=== PATIENT | female | born 1975 | race Two or more races ===

== ENCOUNTER 2018-10-10 14:03 | Outpatient (CLI) | payer OTHER | END 2018-10-10 14:06 | disposition home or self-care (01) | LOC: MAMO-SONO 14:03 | DX: Z12.31 Encounter for screening mammogram for malignant neoplasm of breast (principal) ==

== ENCOUNTER 2022-08-26 07:03 | Day surgery (SDC) | payer OTHER ==
[~2022-08-26] VITALS: Ht 185.4 cm; Wt 84.4 kg
== END 2022-08-26 17:55 | disposition home or self-care (01) ==
LOC: O/R 07:03 → SURH 07:03 → CIR.AMB 07:03 → EDSTATUS 07:45 → SURH 07:45 → OB/GYN 14:01 → O/R 14:01 → OB/GYN 16:13 → O/R 17:55 → CIR.AMB 17:55
PROVIDERS: ATTEND Obstetrics & Gynecology Gynecologic Oncology
DX: C56.2 Malignant neoplasm of left ovary (principal); C78.6 Secondary malignant neoplasm of retroperitoneum and peritoneum; C79.89 Secondary malignant neoplasm of other specified sites; Z15.02 Genetic susceptibility to malignant neoplasm of ovary; E06.3 Autoimmune thyroiditis

== ENCOUNTER 2025-05-23 22:42 | Emergency (ER) | payer OTHER ==
[~2025-05-23] VITALS: Ht 185.4 cm; Wt 81.6 kg
[~2025-05-23 22:42] MED LIST: BUTALB-ACETAMI1 EAC2 PO; ELIQUIS5 MG PO; PROTEINEX-18 LI30 ML PO; TIROSINT13 MCG
[2025-05-23] MEDS ORDERED: SYNTHROID137 MCG PO (22:54)
[2025-05-23] MEDS ORDERED: ELIQUIS5 MG PO (22:54)
[2025-05-23] MEDS ORDERED: LENVIMA1 EAC3 PO (22:54)
[2025-05-23] MEDS ORDERED: BUTALB-ACETAMI1 EAC2 PO (22:55)
[2025-05-23] MEDS ORDERED: LIOTHYRONINE SO5 MCG PO (22:55)
[2025-05-23] MEDS ORDERED: LOSARTAN POTASS25 MG PO (22:55)
[2025-05-24] MEDS ORDERED: LABETALOL HCL 100 MG/20 ML ML ONE (01:35)
[2025-05-24] MEDS ORDERED: ENALAPRILAT DIHYDRATE 2.5 MG/2 ML VIAL IV STA (05:53)
== END 2025-05-24 12:24 | disposition home or self-care (01) ==
LOC: ER 22:42
DX: I10 Essential (primary) hypertension (principal); T50.Z95A Adverse effect of other vaccines and biological substances, initial encounter; Y92.89 Other specified places as the place of occurrence of the external cause; Z85.43 Personal history of malignant neoplasm of ovary; Z85.89 Personal history of malignant neoplasm of other organs and systems

== ENCOUNTER 2025-08-01 08:23 | Outpatient (CLI) | payer OTHER ==
[~2025-08-01 08:23] MED LIST changes: +LENVIMA1 EAC3 PO; +LIOTHYRONINE SO5 MCG PO; +LOSARTAN POTASS25 MG PO; +SYNTHROID137 MCG PO
== END 2025-08-01 08:27 | disposition home or self-care (01) ==
LOC: MRI 08:23
PROVIDERS: ATTEND Neuromusculoskeletal Medicine & OMM
DX: R20.2 Paresthesia of skin (principal); G37.89 Other specified demyelinating diseases of central nervous system; D49.7 Neoplasm of unspecified behavior of endocrine glands and other parts of nervous system; C56.3 Malignant neoplasm of bilateral ovaries
CPT/HCPCS: 70553; 72158

== ENCOUNTER 2025-08-20 11:25 | Outpatient (CLI) | payer OTHER | END 2025-08-20 11:30 | disposition home or self-care (01) | LOC: SONOGRAMA 11:25 | PROVIDERS: ATTEND Internal Medicine Gastroenterology | DX: R10.11 Right upper quadrant pain (principal) ==

== ENCOUNTER 2025-08-30 13:28 | Outpatient (CLI) | payer OTHER | END 2025-08-30 14:23 | disposition home or self-care (01) | LOC: SONOGRAMA 13:28 | PROVIDERS: ATTEND Family Medicine | DX: R22.1 Localized swelling, mass and lump, neck (principal); R22.42 Localized swelling, mass and lump, left lower limb ==